=== PATIENT | female | born 1985 | race African-American/Black ===

== ENCOUNTER 2021-02-17 13:02 | Emergency (ER) | payer OTHER ==
[~2021-02-17] VITALS: Ht 165.1 cm; Wt 50.8 kg
[2021-02-17 17:15] VITALS: BP 117/67; TEMP 99.5
== END 2021-02-17 17:15 | disposition home or self-care (01) ==
LOC: ED 13:02
DX: J06.9 Acute upper respiratory infection, unspecified (principal); U07.1 COVID-19
CPT/HCPCS: 87502; 87635; 87651; 99283; U0003